=== PATIENT | female | born 1975 | race Caucasian/White ===

== ENCOUNTER 2018-11-14 13:55 | Observation (INO) ==
[2018-11-14] MEDS ORDERED: Acetaminophen 325 MG Tablet PO PRN (17:44)
[2018-11-14] MEDS ORDERED: Bisacodyl 10 MG Supp RECTAL PRN (17:44)
[2018-11-14] MEDS ORDERED: Methocarbamol 500 MG Tablet PO PRN (20:45)
[2018-11-14] MEDS ORDERED: Senna/Docusate Sodium 8.6/50 MG Tablet PO SCH (21:00)
[2018-11-14 21:58] LABS: Creatine Kinase 79 U/L (26-192)
[2018-11-15 06:58] LABS: Chloride 107 meq/L (98-107); Potassium 4.2 meq/L (3.5-5.1); Sodium 140 meq/L (136-145)
[2018-11-15 07:09] LABS: Albumin 3.5 g/dL (3.4-5.0); Anion Gap 10 meq/L (5-15); Calcium 8.3 mg/dL (8.5-10.1); Carbon Dioxide 22.7 meq/L (21.0-32.0); Glucose,Random 106 mg/dL (74-106)
[2018-11-15 07:10] LABS: Blood Urea Nitrogen 16 mg/dL (7-18)
[2018-11-15 07:12] LABS: Aspartate Aminotransferase 39 U/L (15-37)
[2018-11-15 07:13] LABS: Alanine Aminotransferase 94 U/L (10-53); Glomerular Filtration Rate Greater Than 89 mL/min (>89)
[2018-11-15 07:15] LABS: Alkaline Phosphatase 111 U/L (45-117)
[2018-11-15] MEDS ORDERED: Pantoprazole Sodium 20 MG DR Tablet PO SCH (09:00)
[2018-11-15] MEDS ORDERED: Famotidine 20 MG Tablet PO SCH (09:00)
--- NOTE | 2018-11-15 12:03 | ECG ---
Date Performed: 11/14/2018 Time Performed: 21:22:11 PTAGE: 43 years EKG: Sinus rhythm NONSPECIFIC T-WAVE ABNORMALITY BORDERLINE ECG Since the PREVIOUS TRACING , no significant change noted PREVIOUS TRACING DOCTOR: Anshul Spencer Interpretating Date/Time 11/15/2018 11:59:55
== END 2018-11-15 09:00 | disposition left against medical advice (07) ==
LOC: PHEDDLT 18:47 → PH3 18:47
PROVIDERS: ADMIT Internal Medicine; ATTEND Internal Medicine
DX: R94.31 Abnormal electrocardiogram [ECG] [EKG]; R82.90 Unspecified abnormal findings in urine; R07.89 Other chest pain
CPT/HCPCS: 71010; 71045; 80053; 81001; 82550; 83520; 83690; 83880; 84484; 85025; 85379; 85610; 85730; 87086; 90774; 90784; 93005; 96374; 99285; C8952; G0378; J1885